=== PATIENT | female | born 1980 | race Caucasian/White ===

== ENCOUNTER 2019-05-03 18:23 | Observation (INO) ==
[2019-05-03] MEDS ORDERED: Albuterol 2.5 MG/3 ML NEBULIZER IH ONE (18:26)
[2019-05-03] MEDS ORDERED: Ipratropium/Albuterol Neb 3 ML IH ONE (18:26)
[2019-05-03 19:07] LABS: Basophils # 0.1 K/mcL (0.0-0.2); Basophils % 0.6 %; Eosinophils # 0.3 K/mcL (0.0-0.6); Eosinophils % 3.1 %; Hematocrit 37.4 % (35.3-44.9); Hemoglobin 12.3 g/dL (11.5-15.4); Immature Granulocytes % 0.2 % (0-4); Lymphocytes # 4.3 K/mcL (0.6-4.6); Lymphocytes % 42.5 %; Mean Corpuscular HGB Conc 32.9 g/dL (31.6-35.5); Mean Corpuscular Hemoglobin 28.1 pg (28.0-33.3); Mean Corpuscular Volume 85.4 fL (83.0-100.0); Mean Platelet Volume 10.1 fL (9.4-12.4); Monocytes # 0.8 K/mcL (0.0-1.3); Monocytes % 8.2 %; Neutrophils # 4.6 K/mcL (1.6-8.9); Platelet Count 254 K/mcL (140-400); Red Blood Count 4.38 M/mcL (3.82-4.97); Red Cell Distribution Width 13.5 % (11.5-14.5); Segmented Neutrophils % 45.4 %; White Blood Count 10.1 K/mcL (4.3-11.1)
[2019-05-03 19:29] LABS: BUN/Creatinine Ratio 29 (6-26); Blood Urea Nitrogen 26 mg/dL (6-20); Calcium 8.7 mg/dL (8.6-10.3); Carbon Dioxide 23 mEq/L (23-29); Chloride 108 mEq/L (98-107); Glucose 154 mg/dL (70-105); Osmolality,Calculated 300 (280-300); Potassium 3.6 mEq/L (3.5-5.1); Sodium 141 mEq/L (136-145); eGFR For African Americans > 60 (> 60); eGFR For Non-African Americans > 60 (> 60)
[2019-05-03] MEDS ORDERED: methylPREDNISolone 125 MG/2 ML VIAL IVP ONE (20:27)
[2019-05-04] MEDS ORDERED: Albuterol 2.5 MG/3 ML NEBULIZER IH PRN (00:25)
[2019-05-04] MEDS ORDERED: Naloxone 0.4 MG/ML INJ IVP PRN (00:26)
[2019-05-04] MEDS: Ipratropium/Albuterol Neb 3 ML IH SCH ×5 (00:47→22:19)
[2019-05-04] MEDS: Azithromycin 500 MG in 0.9 % Sodium Chloride 250 ML IVPB SCH (01:26)
[2019-05-04 02:04] LABS: Hematocrit 37.9 % (35.3-44.9); Hemoglobin 12.3 g/dL (11.5-15.4); Mean Corpuscular HGB Conc 32.5 g/dL (31.6-35.5); Mean Corpuscular Hemoglobin 27.5 pg (28.0-33.3); Mean Corpuscular Volume 84.8 fL (83.0-100.0); Mean Platelet Volume 10.4 fL (9.4-12.4); Platelet Count 268 K/mcL (140-400); Red Blood Count 4.47 M/mcL (3.82-4.97); Red Cell Distribution Width 13.6 % (11.5-14.5); White Blood Count 10.9 K/mcL (4.3-11.1)
[2019-05-04 02:27] LABS: BUN/Creatinine Ratio 28 (6-26); Blood Urea Nitrogen 24 mg/dL (6-20); Calcium 8.8 mg/dL (8.6-10.3); Carbon Dioxide 18 mEq/L (23-29); Chloride 107 mEq/L (98-107); Glucose 214 mg/dL (70-105); Osmolality,Calculated 296 (280-300); Potassium 3.5 mEq/L (3.5-5.1); Sodium 138 mEq/L (136-145); eGFR For African Americans > 60 (> 60); eGFR For Non-African Americans > 60 (> 60)
[2019-05-04] MEDS: MethylPREDNISolone 40 MG/ML VIAL IVP SCH ×3 (05:38→15:17)
[2019-05-04] MEDS ORDERED: SUMAtriptan succinate 50 MG TABLET PO PRN (11:56)
[2019-05-04] MEDS ORDERED: traZODone 50 MG TABLET PO PRN (11:56)
[2019-05-04] MEDS ORDERED: *HR* HYDROcodone/Acet 5/325 mg TABLET PO PRN (11:56)
[2019-05-04] MEDS ORDERED: tiZANidine 4 MG TABLET PO PRN (11:56)
[2019-05-04 12:49] LABS: Estimated Average Glucose 140 mg/dl
[2019-05-04] MEDS: Gabapentin 300 MG CAPSULE PO SCH ×2 (15:17→20:49)
[2019-05-04] MEDS: Benzonatate 100 MG CAPSULE PO SCH ×2 (15:17→20:49)
[2019-05-04] MEDS: Topiramate 100 MG TABLET PO SCH (20:49)
[2019-05-05] MEDS: MethylPREDNISolone 40 MG/ML VIAL IVP SCH ×2 (00:01→09:32)
[2019-05-05] MEDS: Azithromycin 500 MG in 0.9 % Sodium Chloride 250 ML IVPB SCH (00:01)
[2019-05-05] MEDS: Ipratropium/Albuterol Neb 3 ML IH SCH ×2 (03:57→10:32)
[2019-05-05] MEDS ORDERED: Levothyroxine 25 MCG TABLET PO SCH (06:30)
[2019-05-05 07:15] VITALS: BP 100/53
[2019-05-05] MEDS ORDERED: Loratadine 10 MG TABLET PO SCH (09:00)
[2019-05-05] MEDS ORDERED: Fluticasone Propionate Nasal 50 MCG/SPRAY BOTTLE NS SCH (09:00)
[2019-05-05] MEDS ORDERED: BuPROPion XL (24 HR) 150 MG TABLET PO SCH (09:00)
[2019-05-05] MEDS: Benzonatate 100 MG CAPSULE PO SCH (09:32)
[2019-05-05] MEDS: Topiramate 100 MG TABLET PO SCH (09:33)
[2019-05-05] MEDS: Gabapentin 300 MG CAPSULE PO SCH (09:33)
== END 2019-05-05 11:31 | disposition home or self-care (01) ==
LOC: 3BNU 18:23 → EMEROOARM 18:23 → 3BNU 22:30
PROVIDERS: ADMIT Internal Medicine; ATTEND Internal Medicine